=== PATIENT | female | born 1950 | race African-American/Black ===

== ENCOUNTER → 2017-10-31 | Outpatient (CLI) | payer MEDICARE, MEDICAID ==
[~2017-10-31] MED LIST: ACYCLOVIR200 MG ORAL; CALCITRIOL0.25 MCG PO; FUROSEMIDE20 M1 ORAL; KEFLEX500 MG ORAL; NEXIUM40 MG ORAL; PREDNISONE20 MG ORAL; ROCALTROL0.5 MCG GT
--- NOTE | 2017-10-31 16:15 | Diagnostic Imaging Report ---
Indication: Cough Technique: XRAY Chest 2v Comparison: None Findings: Heart size and mediastinal contours are within normal limits. There is no focal airspace consolidation suggest pneumonia. No pleural effusion or pneumothorax. There is a 6 mm nodular density in the right apex. Additionally there is suggested calcifications in the superior mediastinum. There is degenerative change of the spine. No acute osseous abnormality identified. IMPRESSION: No focal airspace consolidation to suggest pneumonia. 6 mm nodular density in the right apex. Suggestion of calcifications in the upper mediastinum. Findings may be related to prior granulomatous exposure however additional etiologies not excluded. Recommend further evaluation with CT of the chest.
== END | disposition home or self-care (01) ==
LOC: RAD 15:10
DX: R05 Cough (principal)
CPT/HCPCS: 71046

== ENCOUNTER 2018-10-14 09:39 | Outpatient (CLI) | payer MEDICARE, MEDICAID ==
[~2018-10-14] VITALS: Ht 170.2 cm; Wt 53.5 kg
[2018-10-14 14:13] VITALS: BP 110/47
[2018-10-14] MEDS ORDERED: FULL SPECTRUM0.8 MG PO (14:13)
[2018-10-14] MEDS ORDERED: OPIUM10 MG/1 ML PO (14:13)
[2018-10-14] MEDS ORDERED: CALCIUM ACETAT667 M1 PO (14:13)
[2018-10-14] MEDS ORDERED: TUMS200 M1 PO (14:13)
[2018-10-14] MEDS ORDERED: MIDODRINE HCL5 MG ORAL (14:13)
--- NOTE | 2018-10-16 19:15 | Consultation ---
DATE OF CONSULTATION: 10/14/2018 HISTORY OF PRESENT ILLNESS: The patient was referred to us by Dr. Epps for evaluation of colonoscopy. The patient has been having abdominal pain and diarrhea. PAST MEDICAL HISTORY: Multiple myeloma, history of kidney disease and she is on dialysis. PAST SURGICAL HISTORY: Endometriosis. MEDICATIONS: Please see medication reconciliation list. ALLERGIES: Dulcolax. FAMILY HISTORY: Noncontributory. SOCIAL HISTORY: The patient denies any tobacco, alcohol, or drug abuse. REVIEW OF SYSTEMS: A 10-point review of systems was performed and pertinent positives in HPI. PHYSICAL EXAMINATION: VITAL SIGNS: Temperature 98.6, blood pressure is 110/47, pulse 69, and respirations 20. HEENT: Normocephalic and atraumatic. Sclerae anicteric. NECK: Supple. No evidence of obvious lymphadenopathy. CARDIOVASCULAR: Regular rate and rhythm. Plus S1 and S2. No obvious murmur. LUNGS: Clear to auscultation bilaterally. ABDOMEN: Positive bowel sounds. Soft and nontender. No rebound. No guarding. No peritoneal sign. EXTREMITIES: No cyanosis. No clubbing. No edema. ASSESSMENT AND PLAN: A 68-year-old female with abdominal pain and diarrhea and bloating. Signs and symptoms are suggestive of the possibility of a small intestinal bacterial overgrowth. The patient at this time does not have want to have any endoscopy and colonoscopy. We are going to trial of the Xifaxan 550 mg three times a day for 14 days. The patient to come back after the treatment for further followup. Kulwant Sharif M.D. DR: OMAR JOB#: [id number] CC:
== END 2018-10-14 11:39 | disposition home or self-care (01) ==
LOC: PAN 09:39
DX: R10.9 Unspecified abdominal pain (principal); R19.7 Diarrhea, unspecified; N18.9 Chronic kidney disease, unspecified; Z99.2 Dependence on renal dialysis; Z88.8 Allergy status to other drugs, medicaments and biological substances
CPT/HCPCS: 99202

== ENCOUNTER 2018-11-20 13:33 | Outpatient (CLI) | payer MEDICARE, MEDICAID ==
[~2018-11-20 13:33] MED LIST changes: +CALCIUM ACETAT667 M1 PO; +FULL SPECTRUM0.8 MG PO; +MIDODRINE HCL5 MG ORAL; +OPIUM10 MG/1 ML PO; +TUMS200 M1 PO
[2018-11-20 13:55] VITALS: BP 103/50
--- NOTE | 2018-12-12 09:32 | General Progress Note ---
Assessment/Plan Problem List: (1) Endometriosis ICD Codes: N80.9 - Endometriosis, unspecified SNOMED: 763661070 (2) GERD (gastroesophageal reflux disease) ICD Codes: K21.9 - Gastro-esophageal reflux disease without esophagitis SNOMED: 265091525 (3) Diarrhea ICD Codes: R19.7 - Diarrhea, unspecified SNOMED: 18062675 (4) History of shingles ICD Codes: Z86.19 - Personal history of other infectious and parasitic diseases SNOMED: 231438793975685 (5) Multiple myeloma ICD Codes: C90.00 - Multiple myeloma not having achieved remission SNOMED: 355536603 Assessment/Plan: s/p Xifaxan now on Tincture of opium for diarrhea does not want colonoscopy at this time RTC 3 months Subjective ROS Limited/Unobtainable: Yes Allergies: Coded Allergies: BISACODYL (Verified Allergy, Severe, 10/14/18) Objective General Appearance: alert EENT: normal ENT inspection Neck: supple Cardiovascular: normal rate Respiratory/Chest: decreased breath sounds Abdomen: normal bowel sounds, non tender, soft Extremities: non-tender Kulwant Sharif MD Dec 12, 2018 09:32
== END 2018-11-20 15:39 | disposition home or self-care (01) ==
LOC: PAN 13:33
DX: N80.9 Endometriosis, unspecified (principal); K21.9 Gastro-esophageal reflux disease without esophagitis; R19.7 Diarrhea, unspecified; Z86.19 Personal history of other infectious and parasitic diseases; C90.00 Multiple myeloma not having achieved remission; Z88.8 Allergy status to other drugs, medicaments and biological substances
CPT/HCPCS: 99213